=== PATIENT | female | born 1960 | race Caucasian/White ===

== ENCOUNTER 2019-05-23 11:11 | Emergency (ER) | payer BC ==
[~2019-05-23] VITALS: Ht 160 cm; Wt 115.0 kg
[2019-05-23 11:31] VITALS: BP 156/67; PULSE 58; TEMP 98
== END 2019-05-23 12:00 | disposition left against medical advice (07) ==
LOC: COL.ER 11:11
DX: M25.562 Pain in left knee (principal); W01.0XXA Fall on same level from slipping, tripping and stumbling without subsequent striking against object, initial encounter; Y92.002 Bathroom of unspecified non-institutional (private) residence as the place of occurrence of the external cause